=== PATIENT | male | born 1970 | race Caucasian/White ===

== ENCOUNTER 2019-08-24 08:21 | Emergency (ER) | payer MEDICAID, MEDICARE ==
[~2019-08-24] VITALS: Ht 182.9 cm; Wt 116.7 kg
[2019-08-24 08:31] VITALS: BP 159/109
[2019-08-24] MEDS ORDERED: LIDOCAINE 1%-EPI 1:100K, 20ML ONE (09:05)
[2019-08-24] MEDS ORDERED: LIDOCAINE 1%-EPI 1:100K, 20ML SQ ONE (09:30)
--- NOTE | 2019-08-24 09:47 | NUR ---
report received from Chuck HARVEY.
[2019-08-24] MEDS ORDERED: HYDROcodone/APAP 5/325 TABLET ONE (10:29)
[2019-08-24] MEDS ORDERED: HYDROcodone/APAP 5/325 TABLET PO ONE (10:30)
== END 2019-08-24 10:47 | disposition home or self-care (01) ==
LOC: ED 09:05
DX: K64.8 Other hemorrhoids (principal)
CPT/HCPCS: 99283